=== PATIENT | female | born 2000 | race Caucasian/White ===

== ENCOUNTER 2019-11-23 06:02 | Day surgery (SDC) | payer OTHER ==
[~2019-11-23 06:02] MED LIST: Buffered Lidocaine 1% SYRIN* 1 ML/SYRINGE INTRADERM ONE; Lactated Ringers 1000 ML Bag* 1,000 ML IV SCH
[2019-11-23] MEDS ORDERED: ceFAZolin 2 GM in NS PREMIX(*) 2 GM/100 ML BAG IVPB ONE (06:46)
[2019-11-23] MEDS ORDERED: Buffered Lidocaine 1% SYRIN* 1 ML/SYRINGE INTRADERM ONE (06:46)
[2019-11-23] MEDS ORDERED: Bupivacaine 0.5%* 50 ML MDV VIAL ONE (07:26)
[2019-11-23] MEDS ORDERED: Midazolam* 1 MG/ML 2 ML VIAL (2 MG) ONE (07:35)
[2019-11-23] MEDS ORDERED: Propofol* 10 MG/ML 20 ML BTL ONE (07:35)
[2019-11-23] MEDS ORDERED: fentaNYL* 50 MCG/ML 2 ML VIAL (100 MCG VIAL) ONE ×3 (07:35→10:32)
[2019-11-23] MEDS ORDERED: Lidocaine 2% PF * 5 ML VIAL ONE (07:36)
[2019-11-23] MEDS ORDERED: EPHEDrine (Pressors)* 50 MG/ML VIAL ONE (07:56)
[2019-11-23] MEDS ORDERED: Dexamethasone IV* 4 MG/ML 1 ML (4 MG) ONE (08:14)
[2019-11-23] MEDS ORDERED: Metoclopramide IV* 5 MG/ML 2 ML VIAL ONE (08:14)
[2019-11-23] MEDS ORDERED: Ondansetron INJ* 2 MG/ML VIAL ONE (08:14)
[2019-11-23] MEDS ORDERED: Ketorolac INJ* 30 MG/ML 1 ML VIAL ONE (08:14)
[2019-11-23] MEDS ORDERED: DiMENhydriNATE IV* 50 MG/ML VIAL IV PUSH PRN (08:30)
[2019-11-23] MEDS ORDERED: Naloxone* 0.4 MG/ML 1 ML VIAL IV PRN (08:30)
[2019-11-23] MEDS ORDERED: fentaNYL* 50 MCG/ML 2 ML VIAL (100 MCG VIAL) IV PRN (08:30)
[2019-11-23] MEDS ORDERED: Acetaminophen IV 1GM/100ML * 100 ML ONE (09:47)
--- NOTE | 2019-11-23 10:28 | OP ---
Operative Report - Blank - Operative Report Date of Operation: 11/23/19 Note: PATIENT: Brittani Townsend DATE OF : 2000 DATE OF SURGERY: 11/23/2019 SURGEON: Inocencio Armstrong MD PLISSE MACHINE OPERATOR: DONNA Alan, whos assistance was necessary for positioning, retraction, help with instrumentation, and closure. ANESTHESIOLOGIST: Dr. Gandara PREOPERATIVE DIAGNOSIS: Left knee ACL tear POSTOPERATIVE DIAGNOSIS: Left knee ACL tear OPERATION: Left knee arthroscopic ACL reconstruction with hamstring tendon autograft ANESTHESIA: General IMPLANTS: Arthrex TightRope for femoral fixation. Arthrex GraftBolt for tibial fixation. TOURNIQUET TIME: Less than 2 hours with a well-padded thigh tourniquet SPECIMENS: none ESTIMATED BLOOD LOSS: minimal COMPLICATIONS: none STATUS: Stable from the operating room to the recovery room and then home. INDICATIONS FOR PROCEDURE: Brittani sustained a left ACL rupture. Both operative and non operative treatment alternatives were reviewed. Further, the nature and risks of surgery were reviewed in careful detail, in the office as well as the pre-operative holding area. Our discussions regarding the risks of surgery included, but were not limited to, infection, wound problems, nerve injury, neuroma, RSD, persistent symptoms, blood clot, failure of the surgery, re-rupture, post- traumatic arthritis, and even the remote chance of catastrophic complication. DESCRIPTION OF PROCEDURE: The patient was seen in the preoperative holding unit and informed written consent was obtained. The appropriate extremity was marked. The patient was then brought to the operating room and carefully positioned on the operating room table. Anesthesia was induced. All bony prominences were padded with great care. A well-padded thigh tourniquet was placed. A chlorhexidine based pre- scrub was performed followed by a chloraprep prep and drape in standard sterile fashion. A surgical safety pause was then conducted in which we confirmed the appropriate patient, extremity, planned procedure, availability of equipment, indication and administration of prophylactic antibiotics, and DVT prophylaxis in the form of a compression boot on the non-surgical extremity. I began with an examination of the knee under anesthesia. She had gross laxity on Josie testing and a positive pivot shift. We began with an Esmarch exsanguination of the limb and inflated the tourniquet. I then made a standard anterolateral knee arthroscopy portal. A diagnostic arthroscopy was performed. The articular cartilage appeared to be in good condition in all three compartments. No meniscal tears were seen. The ACL was confirmed to be ruptured. I then turned my attention to the hamstring autograft harvest. An approximately 4 cm incision was made over the pes anserinus. The sartorius fascia was then incised distally and the hamstring tendons were visualized from the deep aspect of the pes anserinus. The MCL was visualized on the bone and was left intact. The gracilis and semitendinosus tendons were dissected out. The ends of the tendon were whipstitched with a fiber loop suture. I then utilized a tendon stripper to harvest first the gracilis tendon and then the semi-semitendinosus tendon. Both tendons were robust and of good length. The tendons were then cleared of muscle on the back table and the other ends were again whipstitched with fiber loop sutures. These were quadrupled with the apex of the V being the Arthrex TightRope looped suture. The graft was sized to an 8 mm diameter. It was then placed on stretch while I proceeded with a knee arthroscopy. A bacitracin-soaked sponge covered the tendon. The arthroscope was reinserted into the knee and the remnant of the ACL was debrided to provide good visualization of the notch. The lateral wall of the notch was then cleared using a shaver as well as cautery. This was brought all the way back to the posterior edge of the femoral condyle. Additionally, a michael was made at the tibial insertion of the ACL onto the tibia, which was where I would later place my tibial tunnel. This was in line with the posterior aspect of the anterior horn of the lateral meniscus and on the lateral slope of the medial tibial spine. A femoral flip-cutter guide was then placed through the anterolateral portal to the anatomic spot of the ACL insertion onto the femur. The lateral femur was approached with an approximately 1 cm incision anterior to the posterior aspect of the iliotibial band. Using the guide and flip-cutter, I retrograde drilled an 8 mm femoral socket. The femoral socket was >25 mm in length and was visualized through the anteromedial portal with the scope, showing a well- formed socket with good cortical bone laterally. A fiber wire suture was then placed through the femoral tunnel for later graft passage. Attention was then turned to the tibial tunnel. The tibial aiming guide was placed and a guidewire was drilled into the joint. I then utilized an 8 mm reamer to overdrill the guidewire and make the tibial tunnel. I then used a suture grasper through the tibial tunnel to grab the looped fiber wire suture and pulled it through the tibial tunnel. I then pulled the tight rope button through the tunnels and watched it flipped under direct visualization on the lateral femoral cortex. I then used a toggling maneuver with traction on the distal end of the graft to toggle the graft up through the tibial tunnel and into the femoral socket. I had previously marked out 20 mm of graft to ensure that at least this much was in the femoral socket, which was achieved. The knee was then cycled through full range of motion numerous times while holding tension on the graft distally. There was no anterior impingement. The knee was then brought to 30 of flexion and a reverse Josie maneuver was performed. While holding the graft on tension, a nitinol guidewire and dilators were used, and then a GraftBolt sheath and screw were placed into the tibial tunnel, providing excellent fixation. This was an 8 mm GraftBolt. Excess graft was then removed distally. Josie and pivot shift were then tested and the knee was very stable on Josie and there was no pivot shift. Final arthroscopic images were obtained. There was no anterior impingement of the graft. All of the wounds were copiously irrigated. The sartorius fascia was closed and then all the wounds were closed in a layered fashion utilizing 0 vicryl, 3-0 Monocryl and 3-0 PDS. The portals were closed with 3-0 nylon sutures. A sterile dressing was then applied followed by a Cryo/Cuff and Flint brace with the knee locked in extension. The patient was then awakened from anesthesia and transferred to the recovery room in stable condition. There were no complications. All needle and sponge counts were correct at the end of the case. ATTESTATION: I attest I was present and scrubbed and performed the critical portions of the procedure myself. POSTOPERATIVE PLAN: She will remain toe-touch weight-bearing and follow-up in 2 weeks for likely suture removal. My post-op protocol/instructions were given to the patient. She will start PT in the next few days. We will use aspirin for DVT prophylaxis.
[2019-11-23] MEDS ORDERED: oxyCODONE TAB* 5 MG TAB ONE (10:32)
[2019-11-23] MEDS: oxyCODONE TAB* 5 MG TAB PO PRN ×2 (10:34→10:35)
[2019-11-23 12:06] VITALS: BP 114/70
== END 2019-11-23 12:06 | disposition home or self-care (01) ==
LOC: OR 06:02
PROVIDERS: ATTEND Orthopaedic Surgery
DX: S83.512A Sprain of anterior cruciate ligament of left knee, initial encounter (principal); W19.XXXA Unspecified fall, initial encounter; Y93.23 Activity, snow (alpine) (downhill) skiing, snowboarding, sledding, tobogganing and snow tubing; Y92.39 Other specified sports and athletic area as the place of occurrence of the external cause
CPT/HCPCS: 81025; A9270-GY; C1713; C1768; J0690; J1100; J1885; J2250; J2405; J2704; J2765; J3010; J3490